=== PATIENT | male | born 1985 | race Caucasian/White ===

== ENCOUNTER 2023-08-26 09:31 | Inpatient (IN) | payer MEDICAID ==
[~2023-08-26] VITALS: Ht 175.3 cm; Wt 61.7 kg
[2023-08-26 11:48] LABS: HEMATOCRIT. 38.4 % (42.0-52.0); HEMOGLOBIN. 12.5 g/dL (14.0-18.0); MEAN CORPUSCULAR HEMOGLOBIN 30.9 pg (28.0-32.0); MEAN CORPUSCULAR HGB CONC 32.7 g/dL (31.0-37.0); MEAN CORPUSCULAR VOLUME 94.7 fL (80.0-94.0); PLATELET 213 x1000/uL (130-400); RED BLOOD CELL COUNT 4.06 mill/uL (4.7-6.1); RED CELL DISTRIBUTION WIDTH 13.2 % (11.6-14.6)
[2023-08-26 12:00] LABS: ALANINE AMINOTRANSFERASE 58 IU/L (10-49); ALBUMIN 4.2 g/dL (3.2-4.8); ASPARTATE AMINOTRANSFERASE 56 IU/L (<34); BILIRUBIN TOTAL 2.3 mg/dL (0.1-1.0); CALCIUM 9.1 mg/dL (8.7-10.4); CARBON DIOXIDE 30 mEq/L (21-32); CHLORIDE 101 mEq/L (98-107); CREATININE 0.7 mg/dL (0.6-1.3); GLUCOSE 112 mg/dL (70-105); POTASSIUM 4.1 mEq/L (3.5-5.1); PROTEIN TOTAL 6.9 g/dL (6.0-8.3); SODIUM 133 mEq/L (136-145); UREA NITROGEN BLOOD 10 mg/dL (9-23)
[2023-08-26 12:06] LABS: DIFFERENTIAL COMMENT 1
[2023-08-26 13:12] LABS: CLARITY URINE CLEAR (CLEAR); COLOR URINE ORANGE (YELLOW); GLUCOSE URINE NEGATIVE (NEGATIVE); KETONES URINE 2+ (NEGATIVE); LEUKOCYTE ESTERASE URINE TRACE (NEGATIVE); NITRITE URINE NEGATIVE (NEGATIVE); OCCULT BLOOD URINE NEGATIVE (NEGATIVE); PROTEIN URINE 2+ (NEGATIVE); SPECIFIC GRAVITY URINE 1.034 (1.005-1.030)
[2023-08-26 13:37] LABS: *AMPHETAMINES SCREEN URINE NEGATIVE (NEGATIVE); *BARBITURATES SCREEN URINE NEGATIVE (NEGATIVE); *BENZODIAZEPINES SCREEN URINE NEGATIVE (NEGATIVE); *COCAINE SCREEN URINE NEGATIVE (NEGATIVE); CANNABINOID URINE SCREEN NEGATIVE (NEGATIVE); ECSTASY MDMA SCREEN URINE NEGATIVE (NEGATIVE); METHADONE URINE SCREEN Neg (NEGATIVE); OPIATES URINE SCREEN NEGATIVE (NEGATIVE); PHENCYCLIDINE URINE SCREEN NEGATIVE (NEGATIVE)
[2023-08-26] MEDS ORDERED: KETOROLAC 30MG/ML VIAL IM ONE (14:15)
[2023-08-26] MEDS ORDERED: CEFTRIAXONE 1GM PREMIX 50 ML IV ONE (14:30)
[2023-08-26 14:36] LABS: MUCUS URINE 3+ /lpf (NONE/TRACE); SQUAMOUS EPITHELIAL CELL URINE FEW /lpf (RARE/1+)
[2023-08-26 14:37] LABS: BACTERIA URINE TRACE; RBC URINE 0-2 /hpf (0-2)
[2023-08-26] MEDS ORDERED: SODIUM CHLORIDE 0.9% 1,000 ML IV ONE (14:45)
[2023-08-26 17:04] LABS: PLATELET ESTIMATE NORMAL
[2023-08-26] MEDS ORDERED: KETOROLAC 30MG/ML VIAL IM NR (18:45)
[2023-08-26] MEDS ORDERED: CEFTRIAXONE 1GM PREMIX 50 ML IV NR (18:45)
[2023-08-26 20:00] VITALS: BP 100/53; PULSE 86; RESP 18; TEMP 98
[2023-08-26] MEDS ORDERED: DIPHENHYDRAMINE 50MG/ML VIAL IV PRN (22:00)
[2023-08-26] MEDS ORDERED: ONDANSETRON HCL 4MG/2ML INJ IV PRN (22:00)
[2023-08-26] MEDS ORDERED: ACETAMINOPHEN 325MG TABLET PO PRN (22:00)
[2023-08-26] MEDS ORDERED: MAGNESIUM/ALUMINUM HYDROXIDE/SIMETHICONE 30ML UDC PO PRN (22:00)
[2023-08-26] MEDS ORDERED: ZOLPIDEM TARTRATE 5MG TABLET PO PRN (22:00)
[2023-08-26] MEDS: SODIUM CHLORIDE 0.9% INJ 3ML FLUSH IVF SCH (22:00)
[2023-08-26] MEDS ORDERED: NALOXONE HCL 0.4MG/ML VIAL IV PRN (22:15)
[2023-08-26] MEDS: AMPICILLIN SOD/SULBACTAM NA 1.5 G in SODIUM CHLORIDE 0.9% 50 ML IV SCH (23:57)
[2023-08-26] MEDS: HYDROCODONE/ACETAMINOPHEN 5/325MG TABLET PO PRN (23:57)
[2023-08-27] VITALS (8 sets, daily range): BP systolic 94–107; BP diastolic 50–80; PULSE 69–89; RESP 18–22; TEMP 98–100.8
[2023-08-27] MEDS: AMPICILLIN SOD/SULBACTAM NA 1.5 G in SODIUM CHLORIDE 0.9% 50 ML IV SCH ×3 (05:38→17:19)
[2023-08-27] MEDS: SODIUM CHLORIDE 0.9% INJ 3ML FLUSH IVF SCH ×3 (05:38→21:24)
[2023-08-27] MEDS: ACETAMINOPHEN 325MG TABLET PO PRN (05:57)
[2023-08-27] MEDS: DOCUSATE SODIUM 100MG CAPSULE PO SCH ×2 (09:04→17:18)
[2023-08-27] MEDS: HYDROCODONE/ACETAMINOPHEN 5/325MG TABLET PO PRN ×2 (12:04→16:35)
[2023-08-27] MEDS ORDERED: LIDOCAINE HCL 1% 30ML VIAL (10MG/ML) INFIL NR (15:00)
[2023-08-27 17:01] LABS: HEMOGLOBIN. 11.4 g/dL (14.0-18.0); MEAN CORPUSCULAR HEMOGLOBIN 30.9 pg (28.0-32.0); MEAN CORPUSCULAR HGB CONC 33.5 g/dL (31.0-37.0); MEAN CORPUSCULAR VOLUME 92.4 fL (80.0-94.0); MEAN PLATELET VOLUME 8.2 fl (7.4-10.4); PLATELET 211 x1000/uL (130-400); RED BLOOD CELL COUNT 3.68 mill/uL (4.7-6.1); RED CELL DISTRIBUTION WIDTH 13.1 % (11.6-14.6); WHITE BLOOD COUNT 15.3 x1000/uL (4.5-11.0)
[2023-08-27 17:04] LABS: ALANINE AMINOTRANSFERASE 48 IU/L (10-49); ALBUMIN 3.5 g/dL (3.2-4.8); ASPARTATE AMINOTRANSFERASE 35 IU/L (<34); CALCIUM 8.2 mg/dL (8.7-10.4); CARBON DIOXIDE 28 mEq/L (21-32); CHLORIDE 103 mEq/L (98-107); CREATININE 0.6 mg/dL (0.6-1.3); GLUCOSE 136 mg/dL (70-105); POTASSIUM 3.7 mEq/L (3.5-5.1); PROTEIN TOTAL 6.3 g/dL (6.0-8.3); SODIUM 136 mEq/L (136-145); UREA NITROGEN BLOOD 8 mg/dL (9-23)
[2023-08-27 17:05] LABS: DIFFERENTIAL COMMENT 1
[2023-08-27 22:24] LABS: PLATELET ESTIMATE NORMAL
[2023-08-28] VITALS (7 sets, daily range): BP systolic 93–128; BP diastolic 43–91; PULSE 69–96; RESP 16–20; TEMP 98–102; O2SAT 98
[2023-08-28] MEDS: AMPICILLIN SOD/SULBACTAM NA 1.5 G in SODIUM CHLORIDE 0.9% 50 ML IV SCH ×4 (00:27→17:56)
[2023-08-28] MEDS: SODIUM CHLORIDE 0.9% INJ 3ML FLUSH IVF SCH ×2 (05:32→13:40)
[2023-08-28] MEDS: HYDROCODONE/ACETAMINOPHEN 5/325MG TABLET PO PRN (05:57)
[2023-08-28] MEDS: DOCUSATE SODIUM 100MG CAPSULE PO SCH ×2 (09:54→17:00)
[2023-08-28] MEDS: ACETAMINOPHEN 325MG TABLET PO PRN (09:59)
[2023-08-28] MEDS ORDERED: MORPHINE SULFATE 2 MG/ML CPJ (NOT FOR IM USE) IV NR (10:00)
[2023-08-28] MEDS ORDERED: AMOX1TAB16 MT ×3 (20:48→20:52)
[2023-08-28] MEDS ORDERED: SULF1TAB48 MT ×2 (20:48)
[2023-08-28] MEDS ORDERED: SULF-13 MT (20:52)
== END 2023-08-29 04:30 | disposition home or self-care (01) | DRG 720 ==
LOC: ER 09:31 → EDBEDREQ 15:28 → 6WST 19:35 → EDBD 19:35
PROVIDERS: ADMIT Internal Medicine; ATTEND Internal Medicine
DX: A41.9 Sepsis, unspecified organism (principal); E80.6 Other disorders of bilirubin metabolism; L02.31 Cutaneous abscess of buttock
CPT/HCPCS: 36415; 76705; 80053; 80305; 81003; 84145; 85025; 99285; J0295; J0696; J1885; J2270; J3490; J7030